=== PATIENT | male | born 1985 | race Two or more races ===

== ENCOUNTER 2024-02-25 20:40 | Emergency (ER) | payer OTHER ==
[~2024-02-25] VITALS: Ht 170.2 cm; Wt 77.1 kg
[2024-02-26] MEDS ORDERED: GUAIFENESIN 200 MG/10 ML BLIST.PACK PO STA (01:16)
[2024-02-26] MEDS ORDERED: ACETAMINOPHEN 500 MG GEL..CAP PO STA (01:17)
[2024-02-26] MEDS ORDERED: ALBUTEROL SULFATE 3 ML/2.5 MG AMPUL.NEB IH ONE (01:23)
[2024-02-26] MEDS ORDERED: ACETAMINOPHEN 500 MG GEL..CAP PO ONE (01:24)
[2024-02-26] MEDS ORDERED: GUAIFENESIN 200 MG/10 ML BLIST.PACK PO ONE (01:25)
[2024-02-26] MEDS ORDERED: ALBUTEROL SULFATE 3 ML/2.5 MG AMPUL.NEB IH SCH (01:30)
[2024-02-26 02:15] LABS: HEMATOCRIT 44.5 % (39.0-48.0); HEMOGLOBIN 15.2 g/dL (13-16.00); MEAN CELL VOLUME 89.9 fL (80.0-100.00); MEAN CORPUSCULAR HEMOGLOBIN 30.8 pg (27.00-32.0); MEAN CORPUSCULAR HGB CONC 34.2 g/dl (32.0-36.0); PLATELET COUNT 341 K/uL (150-450); RED BLOOD COUNT 4.95 M/uL (4.00-6.00); RED CELL DISTRIBUTION WIDTH 12.3 % (11.5-14.5)
[2024-02-26] MEDS ORDERED: SYMBICORT 16010.2 GM IH (03:50)
[2024-02-26] MEDS ORDERED: GENTAMICIN SULFA5 ML OP (03:50)
[2024-02-26] MEDS ORDERED: EYE ALLERGY REL15 M1 OP (03:50)
[2024-02-26] MEDS ORDERED: ZYNCOF 20-400120 ML PO (03:50)
[2024-02-26] MEDS ORDERED: ALBUTEROL2.5 MG/3 M IH (03:50)
[2024-02-26] MEDS ORDERED: ZITHROMAX500 MG PO (03:50)
== END 2024-02-26 03:58 ==
LOC: ER 20:43
PROVIDERS: General Practice
DX: R50.9 Fever, unspecified (principal); R05.8 Other specified cough; Z20.822 Contact with and (suspected) exposure to COVID-19

== ENCOUNTER 2024-02-27 00:04 | Emergency (ER) | payer OTHER ==
[~2024-02-27] VITALS: Ht 170.2 cm; Wt 77.1 kg
[~2024-02-27 00:04] MED LIST: ALBUTEROL2.5 MG/3 M IH; EYE ALLERGY REL15 M1 OP; GENTAMICIN SULFA5 ML OP; SYMBICORT 16010.2 GM IH; ZITHROMAX500 MG PO; ZYNCOF 20-400120 ML PO
[2024-02-27] MEDS ORDERED: CEFTRIAXONE SODIUM 1,000 MG VIAL IM STA (06:02)
[2024-02-27] MEDS ORDERED: CEFTRIAXONE SODIUM 1,000 MG VIAL ONE (06:06)
== END 2024-02-27 06:42 | disposition home or self-care (01) ==
LOC: ER 00:06
DX: J02.9 Acute pharyngitis, unspecified (principal)

== ENCOUNTER 2024-09-05 11:17 | Emergency (ER) | payer OTHER ==
[~2024-09-05] VITALS: Ht 170.2 cm; Wt 73.0 kg
[2024-09-05] MEDS ORDERED: ACETAMINOPHEN 500 MG GEL..CAP PO ONE (13:38)
[2024-09-05 15:23] LABS: BASO % 0.2 % (0.1-1.2); EOS # 0.05 (0.04-0.54); EOS % 0.6 % (0.7-7.0); LYMPH # 1.92 (1.18-3.74); LYMPH % 22.2 % (19.3-53.1); MEAN PLATELET VOLUME 10.00 fl (9.4-12.4); MONO # 0.95 (0.24-0.82); MONO % 11.0 % (4.7-12.5); NEUT # 5.67 (1.56-6.13); NEUT % 65.8 % (34.0-71.1); RED CELL DISTRIBUTION WIDTH 11.9 % (11.6-14.4)
[2024-09-05 15:34] LABS: COVID-19 AG POSITIVE (NEGATIVE)
[2024-09-05] MEDS ORDERED: ACETAMINOPHEN500 M1 PO (15:51)
[2024-09-05] MEDS ORDERED: PAXLOVID 300-11 EAC1 PO (15:51)
[2024-09-05] MEDS ORDERED: GILTUSS COUGH-118 M1 PO (15:51)
== END 2024-09-05 16:34 | disposition home or self-care (01) ==
LOC: ER 11:31
PROVIDERS: Preventive Medicine Public Health & General Preventive Medicine
DX: U07.1 COVID-19 (principal); R53.81 Other malaise; I10 Essential (primary) hypertension